=== PATIENT | female | born 2000 | race Caucasian/White ===

== ENCOUNTER 2022-11-02 22:23 | Emergency (ER) | payer MEDICARE, MEDICAID, SELFPAY ==
[2022-11-02 22:32] VITALS: BP 94/66; PULSE 92; RESP 16; TEMP 36.4; O2SAT 98; BMI 16.5
[2022-11-02 23:12] LABS: Basophils # 0.1 10^3/uL (0.0-0.1); Basophils % 0.8 %; Eosinophils # 0.1 10^3/uL (0.0-0.8); Eosinophils % 1.2 %; Hematocrit 45.8 % (36-47); Lymphocytes # 1.9 10^3/uL (0.8-4.8); Lymphocytes % 17.5 %; Mean Corpuscular HGB Conc 34.1 g/dL (30-55); Mean Corpuscular Hemoglobin 34.5 pg (27-33); Mean Corpuscular Volume 101.3 fl (85-98); Mean Platelet Volume 8.3 fL (7.4-10.4); Monocytes # 0.5 10^3/uL (0.2-0.9); Monocytes % 4.6 %; Neutrophils # 8.02 10^3/uL (1.8-7.7); Neutrophils % 75.6 %; Nucleated Red Blood Cells % 0 %; Platelet Count 269 10^3/cmm (157-399); Red Blood Count 4.52 10^6/uL (3.85-5.65); Red Cell Distribution Width 12.1 % (12.1-15.1); White Blood Count 10.62 10^3/uL (3.29-11.43)
[2022-11-02 23:29] LABS: HCG, Serum Qual Negative (Negative)
[2022-11-02 23:38] LABS: Alanine Aminotransferase 17 U/L (0-33); Albumin Level 4.5 g/dL (3.5-5.2); Alkaline Phosphatase 79 U/L (35-105); Anion Gap 16.3 (5-19); Aspartate Amino Transferase 17 U/L (0-32); Blood Urea Nitrogen 13 mg/dL (6-20); C Reactive Protein 18.8 mg/L (0.0-4.9); Calcium 8.8 mg/dL (8.5-10.5); Carbon Dioxide 22 mmol/L (22-29); Chloride 107 mmol/L (98-107); Globulin 3.6 g/dL (1.3-4.6); Glomerular Filtration Rate 76.9 mL/min (90-130); Glucose 119 mg/dL (65-115); Osmolality Calculated 293 mOsm/kg (285-295); Potassium 4.3 mmol/L (3.5-5.1); Sodium 141 mmol/L (136-145); Total Bilirubin 0.6 mg/dL (0.15-1.2); Total Protein 8.1 g/dL (6.6-8.7)
--- NOTE | 2022-11-02 23:41 | CTR_ITS ---
PROCEDURE INFORMATION: Exam: CT Abdomen And Pelvis With Contrast Exam date and time: 11/03/2022 12:45 AM Age: 22 years old Clinical indication: Nausea and vomiting; Abdominal pain; Generalized; Prior surgery; Surgery date: 6+ months; Surgery type: Appy; Patient HX: Diffuse abd pain with n/v. ; Additional info: N/v, abd pain, concern for abd infection/appendicitis TECHNIQUE: Imaging protocol: Computed tomography of the abdomen and pelvis with contrast. Radiation optimization: All CT scans at this facility use at least one of these dose optimization techniques: automated exposure control; mA and/or kV adjustment per patient size (includes targeted exams where dose is matched to clinical indication); or iterative reconstruction. Contrast material: OMNI 350; Contrast volume: 75 ml; Contrast route: INTRAVENOUS (IV); REPORTING DATA: Count of CT and Cardiac NM exams in prior 12 months: This patient has received 0 known CTs and 0 known cardiac nuclear medicine studies in the 12 months prior to the current study. COMPARISON: No relevant prior studies available. RADIATION DOSE METRICS: Total DLP (mGy-cm): 252.56 FINDINGS: Liver: Normal. No mass. Gallbladder and bile ducts: Normal. No calcified stones. No ductal dilation. Pancreas: Normal. No ductal dilation. Spleen: Normal. No splenomegaly. Adrenal glands: Normal. No mass. Kidneys and ureters: No obstructing calculus. No hydronephrosis. Stomach and bowel: Low stool burden. Minimal distal gastric wall thickening, likely related to nondistention/spasm versus mild gastritis. No bowel obstruction, pneumatosis or other suspicious bowel wall thickening. Appendix: Normal appendix is not clearly identified however there is no right lower quadrant/pericecal inflammatory response or abscess. Intraperitoneal space: Unremarkable. No free air. No significant fluid collection. Vasculature: No abdominal aortic aneurysm. Lymph nodes: No enlarged lymph nodes. Urinary bladder: Unremarkable as visualized. Reproductive: Unremarkable as visualized. Bones/joints: No acute fracture. Soft tissues: No acute findings. CT/CT abdomen pelvis w con* [id number] IMPRESSION: 1. Minimal distal gastric wall thickening. See discussion above. 2. Normal appendix is not clearly identified however there is no right lower quadrant/pericecal inflammatory response or abscess. Follow-up exam may be considered if symptoms persist. 3. Otherwise no acute abdominopelvic findings.
--- NOTE | 2022-11-02 23:41 | W.ED.ABDPA2 ---
HPI - Abdominal Pain General: Chief Complaint: Abdominal Pain Stated Complaint: throwing up, stomach pain Time Seen by Provider: 11/02/22 23:40 History of Present Illness: 22-year-old female comes in today with abdominal discomfort that started Thursday evening. Since then patient has had some nausea and vomiting and diarrhea on and off. Mother reports that she was concerned due to the pain seeming to worsen. Patient appears nontoxic. Patient appears in mild to no pain. Patient has had some abdominal surgery in the past. Patient has Down syndrome which is contributed to her early abdominal surgeries. Patient takes no routine medications. Associated Symptoms: Reports diarrhea, nausea and vomiting Review of Systems General: Reports: 10 or more systems reviewed and unremarkable except in HPI and below GI: Reports: abdominal pain, nausea, vomiting and diarrhea Physical Exam Const: COMMON NORMALS: alert HENMT: COMMON NORMALS: normocephalic HEAD & SCALP: normocephalic Neck/C-Spine: COMMON NORMALS: full ROM Resp: COMMON NORMALS: normal respiratory effort and clear to auscultation bilaterally AUSCULTATION: clear to auscultation bilaterally Cardio: COMMON NORMALS: regular rate RATE: regular rate GI: AUSCULTATION: Yes normoactive bowel sounds PALPATION: Yes Tenderness to palpation present (GI) and No Rigid due to palpation : COMMON NORMALS: Yes no CVA tenderness BLADDER/KIDNEY EXAM: Yes no CVA tenderness Back/Pelvis: COMMON NORMALS: no CVA tenderness Extremity: COMMON NORMALS: normal to inspection Neuro: SENSORIUM/ORIENTATION: Yes alert Skin: COMMON NORMALS: turgor normal GENERAL SKIN EXAM: turgor normal Course Vital Signs: Vital signs: Vital Signs Temperature 97.6 F 11/02/22 22:32 Pulse Rate 76 11/03/22 01:51 Respiratory Rate 16 11/03/22 01:51 Blood Pressure 117/79 11/03/22 00:43 Pulse Oximetry 97 11/03/22 01:51 Oxygen Delivery Me thod Room Air 11/03/22 01:51 MDM - Abdominal Pain Medical Decision Making 22-year-old female comes in today for complaints of abdominal pain with nausea vomiting diarrhea. Patient became ill on Thursday. Has worsened throughout the weekend. Dpzk-wmi-pjezkwf medications had limited relief of discomfort. Patient has had watery stools starting today. And continues to have an occasional emesis. Vital signs are normal. Differential diagnosis includes not limited to gastroenteritis, bowel obstruction, appendicitis, gallbladder disease, dehydration. CBC white count was 10,000, CMP was unremarkable, CRP was 18. Patient's abdomen was slightly firm with generalized tenderness. CT of the abdomen pelvis noted no sign of appendicitis, abscess, or other abdominal pelvic acute abnormalities except for some gastric wall thickening suggestive of gastritis. I believe patient probably has a bout of gastroenteritis with gastritis. We will go ahead and put patient on pantoprazole for next 2 weeks to help with the inflammation of the gastric wall of the stomach. Patient was written for some medication for pain and nausea. Patient is to follow-up with primary care for further evaluation and treatment return to the ER for new concerns. Lab Data 11/02/22 22:59 11/02/22 22:59 Labs/Radiology: Radiology Impressions Abdomen/Pelvis CT 11/02/22 23:41 IMPRESSION: 1. Minimal distal gastric wall thickening. See discussion above. 2. Normal appendix is not clearly identified however there is no right lower quadrant/pericecal inflammatory response or abscess. Follow-up exam may be considered if symptoms persist. 3. Otherwise no acute abdominopelvic findings. Laboratory Results WBC 10.62 10^3/uL (3.29-11.43) 11/02/22 22:59 RBC 4.52 10^6/uL (3.85-5.65) 11/02/22 22:59 Hgb 15.60 g/dL (11.27-16.99) 11/02/22 22:59 Hct 45.8 % (36-47) 11/02/22 22:59 MCV 101.3 fl (85-98) H 11/02/22 22:59 MCH 34.5 pg (27-33) H 11/02/22 22:59 MCHC 34.1 g/dL (30-55) 11/02/22 22:59 RDW 12.1 % (12.1-15.1) 11/02/22 22:59 Plt Count 269 10^3/cmm (157-399) 11/02/22 22:59 MPV 8.3 fL (7.4-10.4) 11/02/22 22:59 Neut % (Auto) 75.6 % 11/02/22 22:59 Lymph % (Auto) 17.5 % 11/02/22 22:59 [place] % (Auto) 4.6 % 11/02/22 22:59 Eos % (Auto) 1.2 % 11/02/22 22:59 Baso % (Auto) 0.8 % 11/02/22 22:59 Neut # (Auto) 8.02 10^3/uL (1.8-7.7) H 11/02/22 22:59 Lymph # (Auto) 1.9 10^3/uL (0.8-4.8) 11/02/22 22:59 [place] # (Auto) 0.5 10^3/uL (0.2-0.9) 11/02/22 22:59 Eos # (Auto) 0.1 10^3/uL (0.0-0.8) 11/02/22 22:59 Baso # (Auto) 0.1 10^3/uL (0.0-0.1) 11/02/22 22:59 Nucleated RBC % (auto) 0 % 11/02/22 22:59 Nucleated RBCs # 0.0 /100WBC 11/02/22 22:59 Sodium 141 mmol/L (136-145) 11/02/22 22:59 Potassium 4.3 mmol/L (3.5-5.1) 11/02/22 22:59 Chloride 107 mmol/L (98-107) 11/02/22 22:59 Carbon Dioxide 22 mmol/L (22-29) 11/02/22 22:59 Anion Gap 16.3 (5-19) 11/02/22 22:59 BUN 13 mg/dL (6-20) 11/02/22 22:59 Creatinine 0.9 mg/dL (0.5-0.9) 11/02/22 22:59 GFR Calculation 76.9 mL/min (90-130) L 11/02/22 22:59 Glucose 119 mg/dL (65-115) H 11/02/22 22:59 Calculated Osmolality 293 mOsm/kg (285-295) 11/02/22 22:59 Calcium 8.8 mg/dL (8.5-10.5) 11/02/22 22:59 Total Bilirubin 0.6 mg/dL (0.15-1.2) 11/02/22 22:59 AST 17 U/L (0-32) 11/02/22 22:59 ALT 17 U/L (0-33) 11/02/22 22:59 Alkaline Phosphatase 79 U/L (35-105) 11/02/22 22:59 C-Reactive Protein 18.8 mg/L (0.0-4.9) H 11/02/22 22:59 Total Protein 8.1 g/dL (6.6-8.7) 11/02/22 22:59 Albumin 4.5 g/dL (3.5-5.2) 11/02/22 22:59 Globulin 3.6 g/dL (1.3-4.6) 11/02/22 22:59 HCG, Qual Negative (Negative) 11/02/22 22:59 Urine Color Yellow (Yellow) 11/03/22 01:11 Urine Appearance Clear (CLEAR) 11/03/22 01:11 Urine pH 5 (5-7) 11/03/22 01:11 Ur Specific [place] 1.015 (1.005-1.030) 11/03/22 01:11 Urine Protein Neg (Negative) 11/03/22 01:11 Urine Glucose (UA) Norm (Normal) 11/03/22 01:11 Urine Ketones Negative (Negative) 11/03/22 01:11 Urine Blood Neg (Negative) 11/03/22 01:11 Urine Nitrate Negative (Negative) 11/03/22 01:11 Urine Bilirubin Neg (Negative) 11/03/22 01:11 Urine Urobilinogen Neg mg/dL (Negative) 11/03/22 01:11 Ur Leukocyte Esterase Negative (Negative) 11/03/22 01:11 Discharge Plan Discharge Patient Disposition: Home Clinical Impression: Gastritis Qualifiers: Gastritis type: unspecified gastritis Chronicity: acute Gastritis bleeding: without bleeding Qualified Code(s): K29.00 - Acute gastritis without bleeding Condition: Stable Prescriptions: New pantoprazole 40 mg tablet,delayed release (DR/EC) 40 mg PO DAILY Qty: 14 0RF ondansetron 4 mg tablet,disintegrating 4 mg PO Q8H PRN (Reason: nausea and vomiting) Qty: 10 0RF hydrocodone-acetaminophen 5-325 mg tablet 1 tab PO Q8H PRN (Reason: pain (scale score 7-10)) Qty: 6 0RF Discharge Orders: Discharge ED (Routine); Ordered 11/03/22 Ordered By: James Turcios Referrals: Vilma Faust MD [Primary Care Provider] - Discharge Diet: Advance as tolerated Discharge Activity: Increase activity as tolerated Patient Instructions: Gastritis in Children (ED) Activity Restrictions/Additional Instructions: Start with clear liquid diet until abdominal pain resolves. Then increase diet slowly over 2 to 3 days to normal. Use [id number] Imodium as needed for diarrhea stools. Follow directions on package. Use acetaminophen as needed to control pain. Use ondansetron 4 mg every 8 hours as needed for nausea or vomiting. Use hydrocodone as needed for severe pain. Use pantoprazole 40 mg daily for the next 2 weeks. Within 3 days I would expect patient to be improving to where she can tolerate the pain. Follow-up with primary care in 3 to 5 days for recheck. Return to ED for worsening symptoms such as blood in vomit or stool, fever greater than 100.4, or worsening pain. Coding Level of Care Code ED Census Enumerator for Aruna Carlson
[2022-11-03] MEDS: sodium chloride 0.9% 500 ML 999 ML IV (00:15)
[2022-11-03] MEDS: ondansetron 2 mg/ML SDV 2 mL 4 MG IVP (00:15)
[2022-11-03 00:43] VITALS: BP 117/79; PULSE 90; RESP 16; O2SAT 99
[2022-11-03] MEDS: iohexol 350 mg/mL 500 mL Btl (per mL) IV (00:53)
[2022-11-03 01:18] LABS: Add Urine Microscopic? NO; Charge for UA Resulting for Rev
[2022-11-03 01:19] LABS: Bilirubin Urine Neg (Negative); Blood Urine Neg (Negative); Glucose Urine UA Norm (Normal); Ketones Urine Negative (Negative); Leukocyte Esterase Urine Negative (Negative); Nitrate Urine Negative (Negative); Protein Urine Neg (Negative); Specific Gravity, Urine 1.015 (1.005-1.030); Urine Appearance Clear (CLEAR); Urine Color Yellow (Yellow); Urobilinogen Urine Neg (Negative); pH Urine 5 (5-7)
[2022-11-03 01:43] VITALS: RESP 16
[2022-11-03] MEDS: morphine 4 mg/mL SDV 1 mL 2 MG IVP (01:43)
[2022-11-03] MEDS: pantoprazole 40 mg SDV IVP (01:47)
[2022-11-03 01:51] VITALS: PULSE 76; RESP 16; O2SAT 97
[2022-11-03] MEDS: morphine 4 mg/mL SDV 1 mL 1 MG IVP (02:12)
[2022-11-03 02:17] VITALS: BP 101/70; PULSE 81; RESP 17; O2SAT 98
== END 2022-11-03 02:19 | disposition home or self-care (01) ==
PROVIDERS: Emergency Provider Nurse Practitioner Family; PCP Family Medicine
DX: K29.00 Acute gastritis without bleeding (principal)
CPT/HCPCS: 36415; 74177; 80053; 81003; 84703; 85025; 86140; 96361; 96374; 96375; 96376; 99285; C9113; J2270; J2405; J7040; Q9967